=== PATIENT | female | born 1965 | race Hispanic/Latino ===

== ENCOUNTER 2017-03-20 11:44 | Outpatient (CLI) | payer OTHER | END 2017-03-20 11:45 | disposition home or self-care (01) | LOC: LABHHL 11:44 | PROVIDERS: ATTEND Otolaryngology | DX: K12.30 Oral mucositis (ulcerative), unspecified (principal) | CPT/HCPCS: 88305 ==

== ENCOUNTER 2017-05-27 11:00 | Outpatient (CLI) | payer OTHER | END 2017-05-27 11:01 | disposition home or self-care (01) | LOC: SLR 11:00 | PROVIDERS: ATTEND Otolaryngology | DX: G47.30 Sleep apnea, unspecified (principal); E66.9 Obesity, unspecified; I10 Essential (primary) hypertension | CPT/HCPCS: G0399 ==

== ENCOUNTER 2017-06-19 11:00 | Outpatient (CLI) | payer OTHER | END 2017-06-19 11:01 | disposition home or self-care (01) | LOC: SLR 11:00 | PROVIDERS: ATTEND Otolaryngology | DX: G47.33 Obstructive sleep apnea (adult) (pediatric) (principal) | CPT/HCPCS: 95811 ==

== ENCOUNTER 2018-03-18 11:00 | Outpatient (CLI) | payer OTHER | END 2018-03-18 11:01 | disposition home or self-care (01) | LOC: SLR 11:00 | PROVIDERS: ATTEND Otolaryngology | DX: G47.33 Obstructive sleep apnea (adult) (pediatric) (principal) | CPT/HCPCS: G0399 ==